=== PATIENT | female | born 1965 | race Caucasian/White ===

== ENCOUNTER 2017-03-04 16:16 | Observation (INO) | payer SELFPAY ==
[2017-03-04] MEDS ORDERED: RESTORIL CAP 30 MG PO PRN (16:59)
[2017-03-04] MEDS ORDERED: NORCO 10/325 TAB PO PRN (17:02)
--- NOTE | 2017-03-04 17:07 | DR.H&P ---
H&P - History & Physical for Day of: H&P Date: 03/04/17 - Chief Complaint Chief Complaint: elevated bp, mckenzie, dizziness, fatigue - Allergies Allergies/Adverse Reactions: Allergies Allergy/AdvReac Type Severity Reaction Status Date / Time MS No Known Drug Allergy Allergy Verified 02/26/13 18:13 [No Known Drug Allergy] - History of Present Illness History of Present Illness: patient is a 51-year-old white female who is a greater benefit from Dr. Armstrong's office after presenting to office today with complaints of headache waves of dizziness and elevated blood pressure. Patient's blood pressure in the office manually was noted to be 220/120 patient was given Catapres 0.1 approximately 30 minutes postmedication patient's blood pressure was 200/120. Patient was directed admitted for further evaluation of hypertensive urgency. Patient does have a history of renal artery stenosis status post stent placement. Patient states her blood pressure has been gradually increasing over the last few weeks patient, on triple medication therapy for blood pressure. We'll admit with cardiac enzymes, EKG, cardiac monitoring,CTA of the renal arteries admission labs, blood pressure monitoring treatment with IV hydralazine. - Past Medical History Past Medical History: Anxiety, Arthritis, Dyslipidemia, Hypertension - Past Surgical History Surgical History: , Hysterectomy, Other (renal artery stent) - Family History Family Medical History: [place], Coronary Artery Disease - Social History Does patient currently use any type of tobacco product: Yes Have you used tobacco products in the last 12 months: Yes Type of Tobacco Use: Cigarettes Does any household member use tobacco: No Alcohol Use: None Drug Use: None - Review of Systems Constitutional: Weakness, Malaise Eyes: No Symptoms Reported ENT: No Symptoms Reported Respiratory: No Symptoms Reported Cardiovascular: Palpitations, Light Headedness Gastrointestinal: No Symptoms Reported Genitourinary: No Symptoms Reported Musculoskeletal: Back Pain, Leg Pain Skin: No Symptoms Reported Neurological: Weakness, Other (dizziness) Oriented: Normal Eyes: Normal Ear: Normal Nose: Normal Throat: Normal Respiratory: RLL Diminished, LLL Diminished Cardiovascular: Normal. negative: Edema : Normal Auscultation: Bowel Sounds: Normal Palpation: Normal Tenderness: Normal Skin: Normal Musculoskeletal: Knee, Back:Thoracic, Back:Lumbar Psychiatric: Anxiety Affect: Anxious Speech Pattern: Clear, Appropriate - Assessment/Plan (1) Hypertensive urgency, malignant Status: Acute Plan: admit, BP MONITORING, HYDRALAZINE IV. CARDIAC ENZYMES, EKG, CTA RENAL ARTERIES. CBC CMP CXR ON ADMISSION. FLP, RESUME HOME MEDS, BP MEDS (2) Dizziness Status: Acute (3) Arthritis Status: Acute (4) KAMINI (generalized anxiety disorder) Status: Acute
[2017-03-04] MEDS ORDERED: NS 1000 ML 1,000 ML ONE (17:51)
[2017-03-04 17:53] LABS: BASOPHILS # (AUTO) 0.1 X10^3/uL (0.0-0.1); BASOPHILS % (AUTO) 1.4 % (0.2-1.0); EOSINOPHILS # (AUTO) 0.3 x10^3/uL (0.0-0.2); EOSINOPHILS % (AUTO) 2.7 % (0.9-2.9); HEMATOCRIT 38.9 % (36.0-47.0); HEMOGLOBIN 13.7 g/dL (12.0-16.0); LYMPHOCYTES # (AUTO) 3.6 X10^3/uL (1.3-2.9); LYMPHOCYTES % (AUTO) 36.6 % (21.0-51.0); MEAN CORPUSCULAR HEMOGLOBIN 30.3 pg (27.0-34.0); MEAN CORPUSCULAR HGB CONC 35.1 g/dL (33.0-35.0); MEAN CORPUSCULAR VOLUME 86.2 fL (80.0-100.0); MEAN PLATELET VOLUME 7.2 fL (7.4-11.0); MONOCYTES # (AUTO) 0.8 x10^3/uL (0.3-0.8); MONOCYTES % (AUTO) 8.4 % (0.0-13.0); NEUTROPHILS % (AUTO) 50.9 % (42.0-75.0); PLATELET COUNT 249 X10^3/uL (150.0-450.0); RED BLOOD COUNT 4.51 X10^6/uL (3.5-5.4); RED CELL DISTRIBUTION WIDTH 14.1 % (11.6-16.5); WHITE BLOOD COUNT 9.9 X10^3/uL (3.6-10.0)
[2017-03-04 18:12] LABS: BLOOD UREA NITROGEN 18 mg/dL (7-18); CALCIUM 9.1 mg/dL (8.5-10.1); CARBON DIOXIDE 27.2 mmol/L (21-32); CHLORIDE 104 mmol/L (98-107); CREATININE 1.13 mg/dL (0.55-1.02); SODIUM 138 mmol/L (136-145); TROPONIN I < 0.02 ng/mL (0-1.5); eGFR BLACK RACES > 60 (>60); eGFR NON BLACK RACES 54 (>60)
[2017-03-04 18:17] LABS: ALANINE AMINOTRANSFERASE 24 Units/L (12-78); ALBUMIN 3.9 g/dL (3.4-5.0); ALKALINE PHOSPHATASE 71 Units/L (46-116); ASPARTATE AMINO TRANSFERASE 17 Units/L (15-37); CREATINE KINASE 144 Units/L (26-192); CREATINE KINASE MB 1.4 ng/mL (0-4.0); FREE T4 (FREE THYROXINE) 0.95 ng/dL (0.76-1.46); MAGNESIUM 1.7 mg/dL (1.7-2.9); TOTAL PROTEIN 7.3 g/dL (6.4-8.2); TSH (3RD GENERATION) 1.272 uIU/mL (0.358-3.74)
[2017-03-04] MEDS: APRESOLINE INJ 20 MG VIAL IVP PRN (18:18)
[2017-03-04] MEDS: PEPCID 20 MG IV PREMIX* 20 MG/50 ML BAG IV SCH (18:18)
[2017-03-04] MEDS: NS 1000 ML 1,000 ML IV SCH (18:18)
[2017-03-04] MEDS: ASPIRIN PO SCH (18:18)
--- NOTE | 2017-03-04 18:47 | RAD ---
HISTORY: Hypertension. COPD. Study: Chest one view Comparison: None. Findings: The trachea is midline. The cardiac silhouette is unremarkable. The lungs are clear without focal i nfiltrate or effusion. The bony thorax is unremarkable. IMPRESSION: 1. No acute cardiopulmonary disease. Reported By:
[2017-03-04] MEDS: XANAX PO SCH (20:43)
[2017-03-04] MEDS: MOBIC TAB 15 MG PO SCH (20:44)
[2017-03-04] MEDS: NORCO 10/325 TAB PO SCH (20:44)
[2017-03-04] MEDS: NAPROSYN PO SCH (20:46)
[2017-03-04] MEDS ORDERED: MELOXICAM 7.5 MG PO SCH (21:00)
[2017-03-04 21:25] VITALS: BMI 25.7
[2017-03-05] MEDS ORDERED: XANAX PO PRN (02:06)
[2017-03-05] MEDS ORDERED: RESTORIL CAP 30 MG PO PRN (02:06)
[2017-03-05] MEDS: APRESOLINE INJ 20 MG VIAL IVP PRN (04:12)
[2017-03-05] MEDS ORDERED: CATAPRES TAB 0.1 MG PO ONE (05:04)
[2017-03-05] MEDS: NABUMETONE PO SCH ×2 (05:15→11:46)
[2017-03-05 06:39] LABS: CHOL/HDL RATIO 5.3 (0.0-5.0)
[2017-03-05] MEDS ORDERED: NS 100 ML IV 100 ML IV ONE (08:08)
[2017-03-05] MEDS ORDERED: TOPROL XL PO SCH (09:00)
[2017-03-05] MEDS ORDERED: ZESTRIL TAB 40 MG PO SCH (09:00)
[2017-03-05] MEDS ORDERED: EFFEXOR XR 75 MG CAP PO SCH (09:00)
[2017-03-05] MEDS: MOBIC TAB 15 MG PO SCH ×2 (11:41→21:16)
[2017-03-05] MEDS: EFFEXOR XR 150 MG CAP PO SCH (11:41)
[2017-03-05] MEDS: ASPIRIN PO SCH (11:41)
[2017-03-05] MEDS: ZESTRIL TAB 40 MG PO SCH (11:42)
[2017-03-05] MEDS: NORCO 10/325 TAB PO SCH ×2 (11:42→21:14)
[2017-03-05] MEDS: TOPROL XL PO SCH (11:43)
[2017-03-05] MEDS: PEPCID 20 MG IV PREMIX* 20 MG/50 ML BAG IV SCH (11:43)
[2017-03-05] MEDS: XANAX PO SCH ×2 (11:43→21:14)
[2017-03-05] MEDS: NAPROSYN PO SCH ×2 (11:46→21:15)
--- NOTE | 2017-03-05 15:54 | CT ---
HISTORY: Malignant hypertension, left renal artery stent Study: CT abdomen and pelvis with contrast Comparison: None Technique: Multiple axial images of the abdomen and pelvis were obtained from the lung bases to the pubic symphy sis without the administration of IV contrast. Findings: The visualized portions of the lung bases are unremarkable. The liver, spleen, pancreas, adrenals, a nd kidneys are grossly unremarkable in appearance. No CT evidence of hydronephrosis is identified. Ev aluation of the stomach, small bowel, and colon is limited without oral contrast. Moderate atheroscle rotic changes are seen are seen within the visualized aorta. Atherosclerotic changes are also seen wi thin the proximal common iliac arteries bilaterally. The celiac and superior mesenteric arteries are grossly unremarkable. Single renal arteries are demonstrated bilaterally. A proximal left renal arter y stent is noted. Otherwise no significant renal artery stenosis is appreciated. IMPRESSION: 1. Atherosclerotic changes without evidence of significant renal artery stenosis. 2. Left renal artery stent placement. Reported By:
[2017-03-05] MEDS: RESTORIL CAP 30 MG PO PRN (21:13)
[2017-03-05] MEDS: NORVASC TAB 5 MG PO SCH (21:13)
[2017-03-05] MEDS: ZOCOR TAB 40 MG PO SCH ×3 (21:15→21:20)
[2017-03-05] MEDS: NS 1000 ML 1,000 ML IV SCH (21:18)
[2017-03-05] MEDS: PATIENT'S HOME MEDICATION PO SCH (21:19)
[2017-03-06 06:40] LABS: BASOPHILS % (AUTO) 0.5 % (0.2-1.0); EOSINOPHILS # (AUTO) 0.2 x10^3/uL (0.0-0.2); EOSINOPHILS % (AUTO) 2.6 % (0.9-2.9); HEMATOCRIT 33.2 % (36.0-47.0); HEMOGLOBIN 11.6 g/dL (12.0-16.0); LYMPHOCYTES # (AUTO) 2.6 X10^3/uL (1.3-2.9); LYMPHOCYTES % (AUTO) 32.6 % (21.0-51.0); MEAN CORPUSCULAR HEMOGLOBIN 30.4 pg (27.0-34.0); MEAN PLATELET VOLUME 8.1 fL (7.4-11.0); MONOCYTES # (AUTO) 0.7 x10^3/uL (0.3-0.8); MONOCYTES % (AUTO) 8.6 % (0.0-13.0); NEUTROPHILS # (AUTO) 4.5 x10^3/uL (2.2-4.8); NEUTROPHILS % (AUTO) 55.7 % (42.0-75.0); PLATELET COUNT 198 X10^3/uL (150.0-450.0); RED BLOOD COUNT 3.81 X10^6/uL (3.5-5.4); RED CELL DISTRIBUTION WIDTH 14.2 % (11.6-16.5); WHITE BLOOD COUNT 8.1 X10^3/uL (3.6-10.0)
[2017-03-06 06:54] LABS: ALANINE AMINOTRANSFERASE 19 Units/L (12-78); ALBUMIN 3.2 g/dL (3.4-5.0); ALKALINE PHOSPHATASE 52 Units/L (46-116); ASPARTATE AMINO TRANSFERASE 14 Units/L (15-37); BLOOD UREA NITROGEN 22 mg/dL (7-18); CALCIUM 8.5 mg/dL (8.5-10.1); CARBON DIOXIDE 24.7 mmol/L (21-32); CHLORIDE 108 mmol/L (98-107); COR CA(FOR HYPOALB) 9.1 mg/dL (8.5-10.1); CREATININE 0.89 mg/dL (0.55-1.02); SODIUM 140 mmol/L (136-145); TOTAL PROTEIN 5.9 g/dL (6.4-8.2); eGFR BLACK RACES > 60 (>60); eGFR NON BLACK RACES > 60 (>60)
[2017-03-06] MEDS: PATIENT'S HOME MEDICATION PO SCH ×2 (09:00→21:20)
[2017-03-06] MEDS: PEPCID 20 MG IV PREMIX* 20 MG/50 ML BAG IV SCH (09:11)
[2017-03-06] MEDS: TOPROL XL PO SCH (09:12)
[2017-03-06] MEDS: XANAX PO SCH ×2 (09:12→21:18)
[2017-03-06] MEDS: ZESTRIL TAB 40 MG PO SCH (09:12)
[2017-03-06] MEDS: NORVASC TAB 5 MG PO SCH ×3 (09:12→21:19)
[2017-03-06] MEDS: EFFEXOR XR 150 MG CAP PO SCH (09:13)
[2017-03-06] MEDS: NAPROSYN PO SCH ×2 (09:13→21:18)
[2017-03-06] MEDS: ASPIRIN PO SCH (09:13)
[2017-03-06] MEDS: MOBIC TAB 15 MG PO SCH ×2 (09:13→21:19)
[2017-03-06] MEDS: NORCO 10/325 TAB PO SCH ×2 (09:14→21:19)
[2017-03-06] MEDS ORDERED: CATAPRES TAB 0.1 MG PO SCH (14:00)
[2017-03-06] MEDS: CATAPRES TAB 0.1 MG PO SCH (21:18)
[2017-03-06] MEDS: RESTORIL CAP 30 MG PO PRN (21:19)
[2017-03-06] MEDS: ZOCOR TAB 40 MG PO SCH (21:19)
[2017-03-07] MEDS: NS 1000 ML 1,000 ML IV SCH (01:13)
[2017-03-07 05:28] LABS: BASOPHILS # (AUTO) 0.1 X10^3/uL (0.0-0.1); BASOPHILS % (AUTO) 0.6 % (0.2-1.0); EOSINOPHILS # (AUTO) 0.2 x10^3/uL (0.0-0.2); HEMOGLOBIN 12.2 g/dL (12.0-16.0); LYMPHOCYTES # (AUTO) 2.8 X10^3/uL (1.3-2.9); LYMPHOCYTES % (AUTO) 36.3 % (21.0-51.0); MEAN CORPUSCULAR HEMOGLOBIN 30.4 pg (27.0-34.0); MEAN CORPUSCULAR HGB CONC 34.9 g/dL (33.0-35.0); MEAN PLATELET VOLUME 7.8 fL (7.4-11.0); MONOCYTES # (AUTO) 0.8 x10^3/uL (0.3-0.8); MONOCYTES % (AUTO) 10.6 % (0.0-13.0); NEUTROPHILS # (AUTO) 3.8 x10^3/uL (2.2-4.8); NEUTROPHILS % (AUTO) 49.5 % (42.0-75.0); PLATELET COUNT 200 X10^3/uL (150.0-450.0); RED BLOOD COUNT 4.02 X10^6/uL (3.5-5.4); RED CELL DISTRIBUTION WIDTH 13.9 % (11.6-16.5); WHITE BLOOD COUNT 7.8 X10^3/uL (3.6-10.0)
[2017-03-07 06:37] LABS: BLOOD UREA NITROGEN 15 mg/dL (7-18); CALCIUM 8.7 mg/dL (8.5-10.1); CARBON DIOXIDE 27.4 mmol/L (21-32); CHLORIDE 105 mmol/L (98-107); CREATININE 0.98 mg/dL (0.55-1.02); eGFR BLACK RACES > 60 (>60); eGFR NON BLACK RACES > 60 (>60)
[2017-03-07 06:53] LABS: SODIUM 142 mmol/L (136-145)
[2017-03-07] MEDS ORDERED: NORVASC TAB 5 MG PO SCH (09:00)
[2017-03-07] MEDS: EFFEXOR XR 150 MG CAP PO SCH (09:04)
[2017-03-07] MEDS: PEPCID 20 MG IV PREMIX* 20 MG/50 ML BAG IV SCH (09:04)
[2017-03-07] MEDS: MOBIC TAB 15 MG PO SCH (09:04)
[2017-03-07] MEDS: ZESTRIL TAB 40 MG PO SCH (09:04)
[2017-03-07] MEDS: XANAX PO SCH (09:05)
[2017-03-07] MEDS: ASPIRIN PO SCH (09:05)
[2017-03-07] MEDS: NORCO 10/325 TAB PO SCH (09:05)
[2017-03-07] MEDS: NAPROSYN PO SCH (09:05)
[2017-03-07] MEDS: PATIENT'S HOME MEDICATION PO SCH (09:06)
[2017-03-07] MEDS: CATAPRES TAB 0.1 MG PO SCH (09:06)
[2017-03-07] MEDS: TOPROL XL PO SCH (09:06)
[2017-03-07 12:23] VITALS: BP 146/65
[2017-03-07 13:58] LABS: ALANINE AMINOTRANSFERASE 21 Units/L (12-78); ALBUMIN 3.5 g/dL (3.4-5.0); ALKALINE PHOSPHATASE 57 Units/L (46-116); ASPARTATE AMINO TRANSFERASE 17 Units/L (15-37); TOTAL PROTEIN 6.4 g/dL (6.4-8.2)
== END 2017-03-07 15:05 | disposition home or self-care (01) | DRG 305 ==
LOC: MED/SURG 16:16
PROVIDERS: ADMIT Internal Medicine; ATTEND Internal Medicine
DX: I16.0 Hypertensive urgency (principal); R51 Headache; E78.2 Mixed hyperlipidemia; I10 Essential (primary) hypertension; F41.1 Generalized anxiety disorder; M13.89 Other specified arthritis, multiple sites; R42 Dizziness and giddiness; Z87.898 Personal history of other specified conditions; R94.4 Abnormal results of kidney function studies
CPT/HCPCS: 36415; 71010; 74174; 80053; 80061; 82550; 82553; 83735; 84439; 84443; 84484; 85025; 93005; 93010; 99217; A4222; S0028; G0378; J0360

== ENCOUNTER → 2017-07-20 | Outpatient (CLI) | payer SELFPAY ==
--- NOTE | 2017-07-20 16:34 | CT ---
HISTORY: Low back pain with radiculopathy, degenerative disc disease Study: CT lumbar spine without contrast Comparison: Lumbar spine radiographs performed on February 21, 2013 Technique: Multiple axial images of the lumbar spine were obtained from the thoracolumbar junction t o the sacrum without the administration of IV contrast. Sagittal and coronal reformats were performe d and reviewed. Dose reduction techniques including automated exposure control (AEC) and adjustment o f mA and kV were utilized. Findings: The lumbar vertebral body heights are relatively maintained. No evidence of acute displaced fracture or significant subluxation is identified. Mild degenerate facet changes are seen throughout the lumba r spine. Mild multilevel osteophytosis is also noted. Multilevel posterior disc bulges are demonstrat ed with mild central canal and mild bilateral neural foraminal stenosis noted at L3/L4, L4/L5, and L5 /S1. Correlation with MRI may be helpful unless contraindicated. IMPRESSION: 1. Degenerative changes as noted above. Reported By:
== END ==
LOC: RAD 09:43
PROVIDERS: ATTEND Internal Medicine
DX: M51.36 Other intervertebral disc degeneration, lumbar region (principal)
CPT/HCPCS: 72131

== ENCOUNTER 2017-09-24 14:20 | Observation (INO) | payer SELFPAY ==
[2017-09-24 15:10] VITALS: BMI 26.1
[2017-09-24] MEDS ORDERED: APRESOLINE INJ 20 MG VIAL IVP PRN (15:12)
[2017-09-24] MEDS: NORCO 10/325 TAB PO SCH ×2 (15:24→21:06)
[2017-09-24] MEDS: FLEXERIL TAB 10 MG PO SCH ×2 (15:25→21:06)
[2017-09-24] MEDS: ZOCOR TAB 40 MG PO SCH ×2 (15:46→21:06)
[2017-09-24] MEDS: ZESTRIL TAB 40 MG PO SCH (15:52)
[2017-09-24] MEDS: NICOTINE PATCH TD SCH (15:52)
[2017-09-24] MEDS: TOPROL XL PO SCH (15:53)
[2017-09-24] MEDS ORDERED: CYMBALTA PO SCH (16:00)
--- NOTE | 2017-09-24 18:01 | MRI ---
MRI lumbar spine without contrast Indication: Lower back pain that radiates down left side Technique: Multisequence, multiplanar MR images of the lumbar spine were obtained without IV contrast . Comparison: CT 07/20/2017 Findings: Vertebral body heights, alignment and marrow signal are normal. No acute fracture or suspic ious osseous lesion is identified. The conus terminates normally at L1-L2. The cauda equina is unrema rkable. The imaged paraspinal soft tissues demonstrate no gross unexpected findings. T12-L1: Unremarkable L1-L2: Unremarkable L2-L3: Mild paracentral disc bulge and facet arthropathy. Otherwise, unremarkable. L3-L4: Moderate diffuse disc bulge and facet arthropathy results in moderate left neural foraminal st enosis. There is no significant canal or right neural foraminal narrowing. L4-L5: There is a mild broad-based disc bulge and annular tear of the posterior left disc. There is a lso mild bilateral facet arthropathy, which results in mild bilateral neural foraminal narrowing with out significant canal stenosis. L5-S1: Mild broad-based disc bulge and facet arthropathy without significant canal or foraminal steno sis. Impression: Multilevel degenerative changes of the lumbar spine, most significant at L3-L4 where there is moderat e left neural foraminal stenosis secondary to diffuse disc bulge and facet arthropathy. A mild broad-based disc bulge with annular tear at L4-L5 is also noted with mild associated bilateral neural foraminal stenosis. Reported By:
--- NOTE | 2017-09-24 18:32 | DR.H&P ---
H&P - History & Physical for Day of: H&P Date: 09/24/17 - Chief Complaint Chief Complaint: severe lower back pain, legs are weak, high bp - Allergies Allergies/Adverse Reactions: Allergies Allergy/AdvReac Type Severity Reaction Status Date / Time No Known Drug Allergies Allergy Verified 03/06/17 02:13 - History of Present Illness History of Present Illness: PT IS 52 WF DIRECT ADMIT FROM DR YANEZ OFFICE WITH HYPERTENSIVE URGENCY AND INTRACTABLE LOWER BACK PAIN WITH LOWER EXTREMITY WEAKNESS AND PARESTHESIAS. PT HAS HX OF HTN AND RENAL ARTERY STENOSIS WITH STENT PLACEMENT. PT STATES SHE HAS TAKEN BP MEDICATION PRESCIRBED. PT CO INCREASED BP DUE TO PAIN. PT ADMITTED FOR TREATMENT OF HTN CRISIS AND EVALUATION OF INTRACTABLE BACK PAIN AND LEG WEAKNESS. - Past Medical History Past Medical History: Anxiety, Arthritis, Dyslipidemia, Hypertension - Past Surgical History Surgical History: , Hysterectomy - Family History Family Medical History: Diabetes Mellitus, Coronary Artery Disease, Hypertension - Social History Does patient currently use any type of tobacco product: Yes Have you used tobacco products in the last 12 months: Yes Type of Tobacco Use: Cigarettes Does any household member use tobacco: No Alcohol Use: None Drug Use: Prescription Drugs - Medications Home Medications: Duloxetine HCl 30 mg PO DAILY 09/24/17 [History Confirmed 09/24/17] - Review of Systems Constitutional: Weakness Eyes: No Symptoms Reported ENT: No Symptoms Reported Respiratory: No Symptoms Reported Cardiovascular: No Symptoms Reported Genitourinary: No Symptoms Reported Musculoskeletal: Back Pain, Leg Pain Skin: No Symptoms Reported Neurological: Weakness - Physical Exam Vital Signs: Temperature 98.1 F Pulse Rate [Left Brachial] 61 Respiratory Rate 20 Blood Pressure [Right Arm] 132/63 Blood Pressure [Left Arm] 176/81 Blood Pressure 146/65 O2 Sat by Pulse Oximetry 100 Oriented: Normal Eyes: Normal Ear: Normal Nose: Normal Throat: Normal Respiratory: RLL Diminished, LLL Diminished Cardiovascular: Normal : Normal Auscultation: Bowel Sounds: Normal Palpation: Normal Tenderness: Normal Skin: Normal Musculoskeletal: Back:Thoracic, Back:Lumbar, Tender, Motor Deficit, Sensory Deficit Psychiatric: Anxiety Affect: Anxious Speech Pattern: Clear - Assessment/Plan (1) Hypertensive urgency, malignant Status: Acute Plan: ADMIT, BP CONTROL. ADMISSION LABS, HYDRALAZINE IV. RESUME HOME MEDS. MRI L SPINE, PAIN CONTROL (2) Lumbar back pain with radiculopathy affecting left lower extremity Status: Acute (3) Lumbar back pain with radiculopathy affecting right lower extremity Status: Acute
[2017-09-24] MEDS: CYMBALTA PO SCH (21:05)
[2017-09-25] MEDS: NORCO 10/325 TAB PO SCH ×3 (00:06→08:43)
[2017-09-25] MEDS: FLEXERIL TAB 10 MG PO SCH (05:05)
[2017-09-25 06:22] LABS: BASOPHILS % (AUTO) 0.5 % (0.2-1.0); EOSINOPHILS # (AUTO) 0.2 x10^3/uL (0.0-0.2); EOSINOPHILS % (AUTO) 3.1 % (0.9-2.9); HEMATOCRIT 33.3 % (36.0-47.0); HEMOGLOBIN 11.7 g/dL (12.0-16.0); LYMPHOCYTES # (AUTO) 3.3 X10^3/uL (1.3-2.9); MEAN CORPUSCULAR HEMOGLOBIN 30.9 pg (27.0-34.0); MEAN CORPUSCULAR HGB CONC 35.1 g/dL (33.0-35.0); MEAN PLATELET VOLUME 7.3 fL (7.4-11.0); MONOCYTES # (AUTO) 0.9 x10^3/uL (0.3-0.8); MONOCYTES % (AUTO) 10.8 % (0.0-13.0); NEUTROPHILS # (AUTO) 3.5 x10^3/uL (2.2-4.8); NEUTROPHILS % (AUTO) 43.6 % (42.0-75.0); PLATELET COUNT 293 X10^3/uL (150.0-450.0); RED BLOOD COUNT 3.78 X10^6/uL (3.5-5.4); RED CELL DISTRIBUTION WIDTH 13.7 % (11.6-16.5); WHITE BLOOD COUNT 7.9 X10^3/uL (3.6-10.0)
[2017-09-25 06:29] LABS: BLOOD UREA NITROGEN 19 mg/dL (7-18); CALCIUM 8.2 mg/dL (8.5-10.1); CARBON DIOXIDE 24.6 mmol/L (21-32); CHLORIDE 106 mmol/L (98-107); CREATININE 1.03 mg/dL (0.55-1.02); SODIUM 141 mmol/L (136-145); eGFR BLACK RACES > 60 (>60); eGFR NON BLACK RACES > 60 (>60)
[2017-09-25] MEDS: NORVASC TAB 10 MG PO SCH ×3 (08:44→08:53)
[2017-09-25] MEDS: CYMBALTA PO SCH (08:44)
[2017-09-25] MEDS: ZESTRIL TAB 40 MG PO SCH (08:45)
[2017-09-25] MEDS: TOPROL XL PO SCH (08:45)
[2017-09-25] MEDS: NICOTINE PATCH TD SCH (08:46)
[2017-09-25 11:52] VITALS: BP 180/78
== END 2017-09-25 11:55 | disposition home or self-care (01) ==
LOC: MED/SURG 14:20
PROVIDERS: ADMIT Internal Medicine; ATTEND Internal Medicine
DX: I16.0 Hypertensive urgency (principal); I10 Essential (primary) hypertension; M54.16 Radiculopathy, lumbar region; M62.81 Muscle weakness (generalized); R20.2 Paresthesia of skin; M51.36 Other intervertebral disc degeneration, lumbar region; F41.1 Generalized anxiety disorder; F32.9 Major depressive disorder, single episode, unspecified
CPT/HCPCS: 36415; 72148; 80048; 85025; A4222; G0378; J0360